=== PATIENT | female | born 1980 | race Caucasian/White ===

== ENCOUNTER 2019-07-13 17:30 | Emergency (ER) | payer OTHER, BC ==
[2019-07-13] MEDS ORDERED: Naproxen 500 MG Tab PO ONE (17:52)
[2019-07-13] MEDS ORDERED: Cyclobenzaprine 10 MG Tab PO ONE (17:52)
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
[2019-07-13] MEDS ORDERED: Take Home: Naproxen 500 MG Tab, 4 Tab Pack PO ONE (18:06)
[2019-07-13] MEDS ORDERED: Take Home: Cyclobenzaprine 10 MG Tab, 4 Tab Pack PO ONE (18:06)
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
== END 2019-07-13 19:20 | disposition home or self-care (01) ==
LOC: VM.ED 17:30
DX: S06.0X9A Concussion with loss of consciousness of unspecified duration, initial encounter (principal); Z88.2 Allergy status to sulfonamides; V47.5XXA Car driver injured in collision with fixed or stationary object in traffic accident, initial encounter
CPT/HCPCS: 70450; 99284; A9270; 99283-GF

== ENCOUNTER 2021-09-04 14:01 | Emergency (ER) | payer BC, OTHER ==
[2021-09-04 15:02] LABS: CHLORIDE,CL 105 mmol/L (98-107); SODIUM,NA 144 mmol/L (136-145)
[2021-09-04 15:03] LABS: ANION GAP 14.8 mmol/L (5-15)
[2021-09-04] MEDS ORDERED: Take Home: LORazepam 0.5 MG Tab, 2 Tab Pack PO ONE (15:18)
== END 2021-09-04 15:34 | disposition home or self-care (01) ==
LOC: VM.ED 14:01
DX: F41.9 Anxiety disorder, unspecified (principal); R07.89 Other chest pain; Z88.2 Allergy status to sulfonamides
CPT/HCPCS: 36415; 80053; 84484; 85025; 93005; 99285; A9270; 93010; 99284

== ENCOUNTER 2025-04-20 10:25 | Emergency (ER) | payer BC ==
[2025-04-20] MEDS: Take Home: Acetaminophen/Codeine 300 MG/30 MG, 5 Tab Pack PO ONE (11:00)
[2025-04-20] MEDS: Take Home: Cyclobenzaprine 10 MG Tab, 4 Tab Pack PO ONE (11:00)
[2025-04-20 12:42] VITALS: BP 144/77; PULSE 72
== END 2025-04-20 11:02 | disposition home or self-care (01) ==
LOC: VM.ED 10:25
DX: S39.012A Strain of muscle, fascia and tendon of lower back, initial encounter (principal); Z79.899 Other long term (current) drug therapy; Z88.2 Allergy status to sulfonamides; W18.42XA Slipping, tripping and stumbling without falling due to stepping into hole or opening, initial encounter
CPT/HCPCS: 99283; A9270-GY